=== PATIENT | male | born 1965 | race Caucasian/White ===

== ENCOUNTER 2017-05-21 09:48 | Inpatient (IN) | payer MEDICARE ==
[2017-05-21] VITALS (12 sets, daily range): BP systolic 161–192; BP diastolic 92–117; PULSE 54–86; RESP 14–26; TEMP 97.6–98.2; O2SAT 96–99
[~2017-05-21] VITALS: Ht 185.4 cm; Wt 113.0 kg
[~2017-05-21 09:48] MED LIST: ATEN1TAB55 PO; ATOR10 PO; DICL75TA PO; ECASA PO; LISI10 PO
[2017-05-21] MEDS ORDERED: SOMA350T PO (10:13)
[2017-05-21] MEDS ORDERED: NAPR500T PO (10:13)
--- NOTE | 2017-05-21 10:29 | RADRPT ---
EXAM DATE/TIME: 05/21/2017 10:21 [place] COMPARISON: CHEST SINGLE AP, February 10, 2015, 10:31. INDICATIONS : Short of breath MEDICAL HISTORY : Hypertension. SURGICAL HISTORY : None. ENCOUNTER: Initial ACUITY: 1 day PAIN SCORE: 0/10 LOCATION: chest FINDINGS: Portable AP view of the chest demonstrates a normal-sized cardiac silhouette. No effusion, consolidat ion, or pneumothorax is visualized. The bones and soft tissues demonstrate no acute abnormality. CONCLUSION: No acute cardiopulmonary abnormality is identified. Rg Lundy MD on May 21, 2017 at 10:28 Board Certified Radiologist. This report was verified electronically.
[2017-05-21 10:41] LABS: AUTOMATED NEUTROPHIL # 6.7 TH/MM3 (1.8-7.7); BASOPHIL # 0.1 TH/MM3 (0-0.2); BASOPHIL % 1.6 % (0.0-2.0); EOSINOPHIL # 0.1 TH/MM3 (0-0.4); EOSINOPHIL % 1.3 % (0.0-4.0); HEMATOCRIT 45.4 % (39.0-51.0); LYMPH % 14.8 % (9.0-44.0); LYMPHOCYTE # 1.3 TH/MM3 (1.0-4.8); MEAN CELL VOLUME 87.4 FL (80.0-100.0); MEAN CORPUSCULAR HGB CONC 34.4 % (32.0-36.0); MONO % 8.2 % (0.0-8.0); NEUT % 74.1 % (16.0-70.0); PLATELET COUNT 169 TH/MM3 (150-450); RED BLOOD COUNT 5.19 MIL/MM3 (4.50-5.90); RED CELL DISTRIBUTION WIDTH 14.3 % (11.6-17.2)
[2017-05-21 10:45] LABS: HEMO FLAGS AUTO DIFF
--- NOTE | 2017-05-21 11:11 | PD ---
HPI Chief Complaint: Chest Pain Time Seen by Provider: 10:09 Travel History International Travel<30 days: No Contact w/Intl Traveler<30days: No Traveled to known affect area: No History of Present Illness HPI 52-year-old man who presents to the emergency department complaining of generalized pain. He was a special-needs long-term. He reports he suffers from paraplegia. Clarifies this really affects has chronic pain and some generalized weakness. He states that he's had a wheelchair but can stand and transfer. He states that he had more pain after he will consult to the cafeteria and got some chest pain. He reports that he had his blood pressure checked and it was elevated. He states that he had blood pressure both was told he had hypertension past but that was related to his chronic pain. He does not take blood pressure medicines now. History Past Medical History Narrative Medical Paraplegia Hypertension Denies history of heart disease, states he had a heart catheter before but was told that the chest pain was from his muscles and bones. Social History Alcohol Use: Yes (OCC) Tobacco Use: No (CIGARETTES 2-3/DAY, quit in september 2015) Allergies-Medications (Allergen,Severity, Reaction): Coded Allergies: methocarbamol (Verified Allergy, Unknown, N/V, 05/21/17) metoprolol (Verified Adverse Reaction, Severe, MAKES HIM MEAN, 05/21/17) *MDRO Multi-Drug Resistant Organism (Verified Adverse Reaction, Unknown, ) MRSA arm wound 01/20/15. Uncoded Allergies: ANTIBIOTIC (Adverse Reaction, Severe, UNKNOWN, 12/20/14) Reported Meds & Prescriptions Reported Meds & Active Scripts Active Reported Soma (Carisoprodol) 350 Mg Tab 350 Mg PO TID PRN Naproxen 500 Mg Tab 500 Mg PO BID Review of Systems Except as stated in HPI: all other systems reviewed are Neg Physical Exam Narrative GENERAL: Well-appearing 52-year-old man, no acute distress. SKIN: Focused skin assessment warm/dry. HEAD: Atraumatic. Normocephalic. EYES: Pupils equal and round. No scleral icterus. No injection or drainage. ENT: No nasal bleeding or discharge. Mucous membranes pink and moist. NECK: Trachea midline. No JVD. CARDIOVASCULAR: Regular rate and rhythm. No murmur appreciated. RESPIRATORY: No accessory muscle use. Clear to auscultation. Breath sounds equal bilaterally. GASTROINTESTINAL: Abdomen soft, non-tender, nondistended. Hepatic and splenic margins not palpable. MUSCULOSKELETAL: No obvious deformities. No clubbing. No cyanosis. No edema. NEUROLOGICAL: Awake and alert. Generalized weakness. Data Data Last Documented VS Vital Signs Date Time Temp Pulse Resp B/P (MAP) Pulse Ox O2 Delivery O2 Flow Rate FiO2 05/21/17 09:58 97.6 86 26 178/106 (130) 97 Orders Orders Chest, Single Ap (05/21/17 ) Troponin I (05/21/17 10:09) Complete Blood Count With Diff (05/21/17 10:09) Comprehensive Metabolic Panel (05/21/17 10:09) Magnesium (Mg) (05/21/17 10:09) Iv Access Insert/Monitor (05/21/17 10:09) Electrocardiogram (05/21/17 ) Aspirin Chew (Aspirin Chew) (05/21/17 11:39) Nitroglycerin Sl (Nitrostat Sl) (05/21/17 11:45) Labs Laboratory Tests Test 05/21/17 10:05 White Blood Count 9.0 TH/MM3 Red Blood Count 5.19 MIL/MM3 Hemoglobin 15.6 GM/DL Hematocrit 45.4 % Mean Corpuscular Volume 87.4 FL Mean Corpuscular Hemoglobin 30.0 PG Mean Corpuscular Hemoglobin Concent 34.4 % Red Cell Distribution Width 14.3 % Platelet Count 169 TH/MM3 Mean Platelet Volume 8.7 FL Neutrophils (%) (Auto) 74.1 % Lymphocytes (%) (Auto) 14.8 % Monocytes (%) (Auto) 8.2 % Eosinophils (%) (Auto) 1.3 % Basophils (%) (Auto) 1.6 % Neutrophils # (Auto) 6.7 TH/MM3 Lymphocytes # (Auto) 1.3 TH/MM3 Monocytes # (Auto) 0.7 TH/MM3 Eosinophils # (Auto) 0.1 TH/MM3 Basophils # (Auto) 0.1 TH/MM3 CBC Comment AUTO DIFF Differential Comment AUTO DIFF CONFIRMED Blood Urea Nitrogen 18 MG/DL Creatinine 1.02 MG/DL Random Glucose 91 MG/DL Total Protein 6.9 GM/DL Albumin 3.5 GM/DL Calcium Level 8.6 MG/DL Magnesium Level 2.2 MG/DL Alkaline Phosphatase 70 U/L Aspartate Amino Transf (AST/SGOT) 17 U/L Alanine Aminotransferase (ALT/SGPT) 22 U/L Total Bilirubin 0.4 MG/DL Sodium Level 144 MEQ/L Potassium Level 3.4 MEQ/L Chloride Level 109 MEQ/L Carbon Dioxide Level 30.0 MEQ/L Anion Gap 5 MEQ/L Estimat Glomerular Filtration Rate 76 ML/MIN Troponin I 0.22 NG/ML MDM Medical Decision Making Medical Screen Exam Complete: Yes Emergency Medical Condition: Yes Interpretation(s) My review of EKG: Normal sinus rhythm at a rate of 87, diffuse T wave inversions inferior and lateral leads. Compared to previous EKG from February 2015 , no significant change. LABS: CBC is unremarkable. CMP is generally unremarkable. Troponin 0.22 Chest x-ray: No acute disease. Differential Diagnosis Chest pain, ACS, muscular skeletal pain, chronic pain, other Narrative Course Medical decision making Is a 52-year-old man who presents to the emergency department after some increased pain. He did describe some chest pain. Now he complains of pain in his arms and legs and all over that he states is from his neck problems. He's had apparently a negative heart catheter before, although this is not at all clear. He looks well now. We'll check EKG labs x-ray. FINAL: Chest pain, not a great story but troponins bumped a 0.22. EKG is abnormal. Set elevated troponins in the past 0.12. He reports a heart catheter in the past but I don't see one on our system. We'll plan on admission for serial cardiac enzymes and possibly cardiology consult. Diagnosis Primary Impression: Chest pain Additional Instructions: Continue current medications. Follow up with her primary doctor in the next 2-5 days. Med/Other Pt SpecificInfo: No Change to Meds Disposition: 01 DISCHARGE HOME Condition: Stable Milton Siu MD May 21, 2017 11:11
[2017-05-21 11:19] LABS: ALT (GPT) 22 U/L (12-78); ANION GAP 5 MEQ/L (5-15); AST (GOT) 17 U/L (15-37); BLOOD UREA NITROGEN 18 MG/DL (7-18); CHLORIDE 109 MEQ/L (98-107); GLOMERULAR FILTRATION RATE 76 ML/MIN (>89); MAGNESIUM 2.2 MG/DL (1.5-2.5); POTASSIUM 3.4 MEQ/L (3.5-5.1); SODIUM (NA) 144 MEQ/L (136-145)
[2017-05-21 11:24] LABS: ALKALINE PHOSPHATASE 70 U/L (45-117); TOTAL BILIRUBIN ADULT 0.4 MG/DL (0.2-1.0)
[2017-05-21 11:27] LABS: SCAN/DIFF AUTO DIFF CONFIRMED
[2017-05-21] MEDS ORDERED: ASPIRIN 81 MG CHEW TAB CHEW STA (11:39)
[2017-05-21] MEDS ORDERED: NITROGLYCERIN 0.4 MG SL 25 TABS/BTL SL PRN (11:45)
[2017-05-21] MEDS ORDERED: ACETAMINOPHEN 500 MG CPLT PO PRN (12:45)
[2017-05-21] MEDS: ENOXAPARIN SODIUM 120 MG/0.8 ML SYRINGE SQ SCH (14:00)
[2017-05-21] MEDS: MORPHINE SULFATE 4 MG/ML INJ IV PUSH PRN ×2 (14:45→20:05)
[2017-05-21] MEDS: SODIUM CHLORIDE 0.9% FLUSH 10 ML FLUSH IV FLUSH PRN ×2 (14:45→15:16)
[2017-05-21] MEDS ORDERED: ENALAPRILAT 1.25 MG/ML VIAL IV PUSH PRN (15:00)
--- NOTE | 2017-05-21 16:57 | HHI.HP ---
[facility] Service [facility] Primary Care Physician Unknown Admission Diagnosis chest pain Diagnoses: (1) Elevated troponin I level (2) Chest pain (3) Hypertension Chief Complaint: Chest pain Travel History International Travel<30 Days: No Contact w/Intl Traveler <30 Da: No Traveled to Known Affected Are: No History of Present Illness The patient is a 52-year-old male who presented to emergency department due to complaint of chest pain. He was in a special needs her pain senior care and reported a 30 second episode of substernal chest pain that did not radiate. He described the pain as pressure. Denies associated dyspnea or diaphoresis. He is paraplegic. He states that he was not feeling well and they checked his blood pressure at the senior care. It was found to be elevated. He currently has no chest pain. Review of Systems Constitutional: DENIES: Fever, Chills, Night Sweats Eyes: DENIES: Blurred vision, Vision loss Ears, nose, mouth, throat: DENIES: Hearing loss Respiratory: DENIES: Cough, Wheezing, Sputum production, Shortness of breath Cardiovascular: COMPLAINS OF: Chest pain, DENIES: Palpitations, Dyspnea on Exertion, Lower Extremity Edema Gastrointestinal: DENIES: Abdominal pain, Constipation, Diarrhea, Nausea, Vomiting Genitourinary: DENIES: Urinary frequency, Urinary incontinence, Urgency, Hematuria, Dysuria, Nocturia Musculoskeletal: DENIES: Joint pain, Muscle aches Integumentary: DENIES: Pruritus, Rash Hematologic/lymphatic: DENIES: Bruising Neurologic: DENIES: Headache Past Family Social History Past Medical History Paraplegia Hypertension Past Surgical History Left upper leg surgery Back surgery Reported Medications Soma 350 mg 3 times a day as needed Naproxen 500 mg twice a day Allergies: Coded Allergies: methocarbamol (Verified Allergy, Unknown, N/V, 05/21/17) metoprolol (Verified Adverse Reaction, Severe, MAKES HIM MEAN, 05/21/17) *MDRO Multi-Drug Resistant Organism (Verified Adverse Reaction, Unknown, ) MRSA arm wound 01/20/15. Uncoded Allergies: ANTIBIOTIC (Adverse Reaction, Severe, UNKNOWN, 12/20/14) Family History Denies family history of heart disease, diabetes, hypertension, hyperlipidemia. Social History Previously smoked 2-3 cigarettes per day, but states that he quit last year. Reports occasional alcohol use. Denies illicit drug use. Physical Exam Vital Signs Vital Signs Date Time Temp Pulse Resp B/P (MAP) Pulse Ox O2 Delivery O2 Flow Rate FiO2 05/21/17 16:35 98.2 60 18 172/93 (119) 96 05/21/17 15:44 54 161/92 (115) 05/21/17 15:11 190/100 (130) 05/21/17 14:59 192/111 (138) 05/21/17 14:40 191/117 (141) 05/21/17 13:52 97.9 66 14 191/107 (135) 98 05/21/17 12:57 69 18 168/99 (122) 99 Room Air 05/21/17 12:06 98.0 73 18 175/92 (119) 97 Room Air 05/21/17 09:58 97.6 86 26 178/106 (130) 97 Physical Exam GENERAL: Well-nourished, well-developed male in no acute distress. HEENT: Normocephalic, atraumatic. Pupils equal, round and reactive. Extraocular movements intact. No scleral icterus. No injection or drainage. Oropharynx is clear. Mucous membranes are moist. CARDIOVASCULAR: Regular rate and rhythm without murmurs, gallops, or rubs. RESPIRATORY: Clear to auscultation. No wheezes, rales, or rhonchi. Breathing is non-labored. GASTROINTESTINAL: Abdomen soft, non-tender, nondistended. EXTREMITIES: No lower extremity edema. No calf tenderness. PSYCH: Alert and oriented x 3. Laboratory Laboratory Tests Test 05/21/17 10:05 05/21/17 16:07 White Blood Count 9.0 Red Blood Count 5.19 Hemoglobin 15.6 Hematocrit 45.4 Mean Corpuscular Volume 87.4 Mean Corpuscular Hemoglobin 30.0 Mean Corpuscular Hemoglobin Concent 34.4 Red Cell Distribution Width 14.3 Platelet Count 169 Mean Platelet Volume 8.7 Neutrophils (%) (Auto) 74.1 Lymphocytes (%) (Auto) 14.8 Monocytes (%) (Auto) 8.2 Eosinophils (%) (Auto) 1.3 Basophils (%) (Auto) 1.6 Neutrophils # (Auto) 6.7 Lymphocytes # (Auto) 1.3 Monocytes # (Auto) 0.7 Eosinophils # (Auto) 0.1 Basophils # (Auto) 0.1 CBC Comment AUTO DIFF Differential Comment AUTO DIFF CONFIRMED Blood Urea Nitrogen 18 Creatinine 1.02 Random Glucose 91 Total Protein 6.9 Albumin 3.5 Calcium Level 8.6 Magnesium Level 2.2 Alkaline Phosphatase 70 Aspartate Amino Transf (AST/SGOT) 17 Alanine Aminotransferase (ALT/SGPT) 22 Total Bilirubin 0.4 Sodium Level 144 Potassium Level 3.4 Chloride Level 109 Carbon Dioxide Level 30.0 Anion Gap 5 Estimat Glomerular Filtration Rate 76 Troponin I 0.22 Result Diagram: 05/21/17 1005 05/21/17 1005 Imaging Last Impressions Chest X-Ray 05/21/17 0000 Signed Impressions: Service Date/Time: Sunday, May 21, 2017 10:21 - CONCLUSION: No acute cardiopulmonary abnormality is identified. MD Archie Hughes VTE Risk Assessment Caprini VTE Risk Assessment: Mod/High Risk (score >= 2) Caprini Risk Assessment Model Point Value = 1 Point Value = 2 Point Value = 3 Point Value = 5 Age 41-60 Minor surgery BMI > 25 kg/m2 Swollen legs Varicose veins or History of unexplained or recurrent spontaneous Oral contraceptives or hormone replacement Sepsis (< 1 month) Serious lung disease, including pneumonia (< 1 month) Abnormal pulmonary function Acute myocardial infarction Congestive heart failure (< 1 month) History of inflammatory bowel disease Medical patient at bed rest Age 61-74 Arthroscopic surgery Major open surgery (> 45 min) Laparoscopic surgery (> 45 min) Malignancy Confined to bed (> 72 hours) Immobilizing plaster cast Central venous access Age >= 75 History of VTE Family history of VTE Factor V Leiden Prothrombin [id number] Lupus anticoagulant Anticardiolipin antibodies Elevated serum homocysteine Heparin-induced thrombocytopenia Other congenital or acquired thrombophilia Stroke (< 1 month) Elective arthroplasty Hip, pelvis, or leg fracture Acute spinal cord injury (< 1 month) Prophylaxis Regimen Total Risk Factor Score Risk Level Prophylaxis Regimen 0-1 Low Early ambulation 2 Moderate Order ONE of the following: *Sequential Compression Device (SCD) *Heparin 5000 units SQ BID 3-4 Higher Order ONE of the following medications: *Heparin 5000 units SQ TID *Enoxaparin/Lovenox 40 mg SQ daily (WT < 150 kg, CrCl > 30 mL/min) *Enoxaparin/Lovenox 30 mg SQ daily (WT < 150 kg, CrCl > 10-29 mL/min) *Enoxaparin/Lovenox 30 mg SQ BID (WT < 150 kg, CrCl > 30 mL/min) AND/OR *Sequential Compression Device (SCD) 5 or more Highest Order ONE of the following medications: *Heparin 5000 units SQ TID (Preferred with Epidurals) *Enoxaparin/Lovenox 40 mg SQ daily (WT < 150 kg, CrCl > 30 mL/min) *Enoxaparin/Lovenox 30 mg SQ daily (WT < 150 kg, CrCl > 10-29 mL/min) *Enoxaparin/Lovenox 30 mg SQ BID (WT < 150 kg, CrCl > 30 mL/min) AND *Sequential Compression Device (SCD) Assessment and Plan Assessment and Plan 1. Chest pain, elevated troponin: The patient had an episode of chest pain at a special needs senior care which lasted approximately 30 seconds. He is not currently having chest pain. His troponin is slightly elevated. Monitor on telemetry. Nitropaste, Lovenox. Consult cardiology. 2. Hypertension: Blood pressure is elevated. Vasotec as needed. Start lisinopril. 3. Paraplegia: Chronic. 4. DVT prophylaxis: Lovenox. 5. Chronic neck/back pain: Patient takes naproxen and Soma at home. Jeff Hernandes MD May 21, 2017 16:57
[2017-05-21] MEDS: NITROGLYCERIN 2% OINT 1 GM PACKET TOP SCH (18:25)
--- NOTE | 2017-05-21 19:03 | PD.CONS ---
HPI Consult Requested By Primary Care Physician Unknown History of Present Illness 52-year-old male with pmhx significant for HTN, former smoker, paraplegia, chronic back pain, medication noncompliance who presented to emergency department with vague complaints of chest pain, neck pain and back pain. He described the pain as pressure. Denies associated dyspnea or diaphoresis. He is paraplegic. He states that he was not feeling well, and they checked his blood pressure at the [facility] and it was very high. In the ER diastolic BP >100mmHg. EKG sinus rhythm with T wave inversion in the inferior leads. First set of cardiac markers showing mildly elevated troponin, thus cardiology has been consulted for further management and evaluation. He does not have economic consultant. HTN its management by PCP but he has been noncompliant with medications. Review of Systems Consitutional: DENIES: Fatigue, Fever, Chills, Weight gain, Weight loss Eyes: DENIES: Amaurosis Fugax, Change in vision HEENT: DENIES: Lightheadedness, Change in hearing Respiratory: DENIES: See HPI, Cough, Snoring, Shortness of breath, Wheezing, Sputum production Cardiovascular: COMPLAINS OF: See HPI, Chest pain Gastrointestinal: DENIES: Nausea, Vomiting, Change in bowel habits, Reflux, Bloody stools, Melena Genitourinary: DENIES: Urinary incontinence, Difficulty voiding Integumentary: DENIES: Rash Neurologic: DENIES: Tingling or numbness, Memory problems, Poor Balance, Stroke symptoms Musculoskeletal: COMPLAINS OF: Muscle pain, Back pain, DENIES: Joint pain, Limited range of motion Psychiatric: DENIES: Anxiety, Depression, Sleep disturbances Hematologic: DENIES: Bruising tendencies, Bleeding tendencies Endocrine: DENIES: Weight gain, Weight loss, Thyroid disease Past Family Social History Allergies: Coded Allergies: methocarbamol (Verified Allergy, Unknown, N/V, 05/21/17) metoprolol (Verified Adverse Reaction, Severe, MAKES HIM MEAN, 05/21/17) *MDRO Multi-Drug Resistant Organism (Verified Adverse Reaction, Unknown, ) MRSA arm wound 01/20/15. Uncoded Allergies: ANTIBIOTIC (Adverse Reaction, Severe, UNKNOWN, 12/20/14) Past Medical History Paraplegia Hypertension Chronic back pain Past Surgical History Left upper leg surgery Reported Medications Reported Meds & Active Scripts Active Reported Soma (Carisoprodol) 350 Mg Tab 350 Mg PO TID PRN Naproxen 500 Mg Tab 500 Mg PO BID Active Ordered Medications Current Medications Medications (Trade) Dose Ordered Sig/Maximiliano Route Start Time Stop Time Status Last Admin (Nitrostat Sl) 0.4 mg Q5M PRN SL 05/21/17 11:45 (NS Flush) 2 ml BID IV FLUSH 05/21/17 21:00 (NS Flush) 2 ml UNSCH PRN IV FLUSH 05/21/17 12:45 05/21/17 15:16 (Aspirin) 325 mg DAILY PO 05/22/17 09:00 (Nitroglycerin 2% Oint) 1 inch Q6HR TOP 05/21/17 18:00 05/21/17 18:25 (Tylenol) 500 mg Q4H PRN PO 05/21/17 12:45 (Morphine Inj) 2 mg Q5M PRN IV PUSH 05/21/17 12:45 05/21/17 14:45 (Protonix) 40 mg DAILY PO 05/22/17 09:00 (Lovenox Inj) 110 mg Q12H SQ 05/21/17 14:00 (Vasotec Inj) 1.25 mg Q6H PRN IV PUSH 05/21/17 15:00 05/21/17 15:16 Family History No CV hx Social History Smoker Physical Exam Vital Signs Vital Signs Date Time Temp Pulse Resp B/P (MAP) Pulse Ox O2 Delivery O2 Flow Rate FiO2 05/21/17 18:17 66 05/21/17 16:35 98.2 60 18 172/93 (119) 96 05/21/17 15:44 54 161/92 (115) 05/21/17 15:11 190/100 (130) 05/21/17 14:59 192/111 (138) 05/21/17 14:40 191/117 (141) 05/21/17 13:52 97.9 66 14 191/107 (135) 98 05/21/17 12:57 69 18 168/99 (122) 99 Room Air 05/21/17 12:06 98.0 73 18 175/92 (119) 97 Room Air 05/21/17 09:58 97.6 86 26 178/106 (130) 97 Physical Exam GENERAL: Well-nourished, well-developed patient. SKIN: Warm and dry. HEAD: Normocephalic. EYES: No scleral icterus. No injection or drainage. NECK: Supple, trachea midline. No JVD or lymphadenopathy. CARDIOVASCULAR: Regular rate and rhythm without murmurs, gallops, or rubs. RESPIRATORY: Breath sounds equal bilaterally. No accessory muscle use. GASTROINTESTINAL: Abdomen soft, non-tender, nondistended. EXTREMITIES: No cyanosis, or edema. Laboratory Laboratory Tests Test 05/21/17 10:05 05/21/17 16:07 White Blood Count 9.0 Red Blood Count 5.19 Hemoglobin 15.6 Hematocrit 45.4 Mean Corpuscular Volume 87.4 Mean Corpuscular Hemoglobin 30.0 Mean Corpuscular Hemoglobin Concent 34.4 Red Cell Distribution Width 14.3 Platelet Count 169 Mean Platelet Volume 8.7 Neutrophils (%) (Auto) 74.1 Lymphocytes (%) (Auto) 14.8 Monocytes (%) (Auto) 8.2 Eosinophils (%) (Auto) 1.3 Basophils (%) (Auto) 1.6 Neutrophils # (Auto) 6.7 Lymphocytes # (Auto) 1.3 Monocytes # (Auto) 0.7 Eosinophils # (Auto) 0.1 Basophils # (Auto) 0.1 CBC Comment AUTO DIFF Differential Comment AUTO DIFF CONFIRMED Blood Urea Nitrogen 18 Creatinine 1.02 Random Glucose 91 Total Protein 6.9 Albumin 3.5 Calcium Level 8.6 Magnesium Level 2.2 Alkaline Phosphatase 70 Aspartate Amino Transf (AST/SGOT) 17 Alanine Aminotransferase (ALT/SGPT) 22 Total Bilirubin 0.4 Sodium Level 144 Potassium Level 3.4 Chloride Level 109 Carbon Dioxide Level 30.0 Anion Gap 5 Estimat Glomerular Filtration Rate 76 Troponin I 0.22 0.23 Total Creatine Kinase 136 Result Diagram: 05/21/17 1005 05/21/17 1005 Imaging Last Impressions Chest X-Ray 05/21/17 0000 Signed Impressions: Service Date/Time: Sunday, May 21, 2017 10:21 - CONCLUSION: No acute cardiopulmonary abnormality is identified. Rg Lundy MD Assessment and Plan Problem List: (1) Chest pain ICD Codes: R07.9 - Chest pain Status: Acute Plan: 52 y/o M with cardiac risk factors that include HTN, smoker, age presenting with atypical chest pain/back/neck pain, mildly elevated troponin and EKG changes in the setting of HTN urgency and noncompliance with medications. Currently afebrile, hemodynamically stable and chest pain free. ? Negative cardiac work-up in the past, no records available. Recommendations: 1. ASA 81mg PO daily 2. No BB given reported allergy, start Norvasc 5mg PO daily 3. Get Lipid Profile 4. 2Dechocardiogram 5. Lisinopril 5mg PO daily 6. HCTZ 25mg PO daily 7. Pain management for neck pain Further management to be determine (2) acute on chronic lower back pain Status: Acute (3) Multiple contusions ICD Codes: T14.8 - Other injury of unspecified body region Status: Acute (4) Cervical strain, acute ICD Codes: S16.1XXA - Strain of muscle, fascia and tendon at neck level, initial encounter Status: Acute (5) Hypertension ICD Codes: I10 - Hypertension Status: Chronic Montemayor-Xavier Peterson MD May 21, 2017 19:03
[2017-05-21] MEDS: SODIUM CHLORIDE 0.9% FLUSH 10 ML FLUSH IV FLUSH SCH (20:04)
[2017-05-22] VITALS (10 sets, daily range): BP systolic 127–185; BP diastolic 75–100; PULSE 50–72; RESP 16–20; TEMP 98.2–98.7; O2SAT 95–100
[2017-05-22 00:01] LABS: HDL CHOLESTEROL 57.3 MG/DL (40.0-60.0)
[2017-05-22] MEDS: ENOXAPARIN SODIUM 120 MG/0.8 ML SYRINGE SQ SCH ×2 (02:00→14:00)
[2017-05-22] MEDS: MORPHINE SULFATE 4 MG/ML INJ IV PUSH PRN ×4 (02:40→20:40)
[2017-05-22 04:58] LABS: BICARBONATE 27.1 MEQ/L (21.0-32.0); POTASSIUM 3.3 MEQ/L (3.5-5.1)
[2017-05-22] MEDS: NITROGLYCERIN 2% OINT 1 GM PACKET TOP SCH ×4 (06:25→18:46)
[2017-05-22] MEDS: SODIUM CHLORIDE 0.9% FLUSH 10 ML FLUSH IV FLUSH SCH ×2 (08:34→21:00)
[2017-05-22] MEDS: LISINOPRIL 5 MG TAB PO SCH ×2 (08:38→20:39)
[2017-05-22] MEDS: PANTOPRAZOLE SOD 40 MG DELAYED RELEASE TAB PO SCH (08:39)
[2017-05-22] MEDS: amLODIPine BESYLATE 5 MG TAB PO SCH ×2 (08:39→20:39)
[2017-05-22] MEDS: HYDROCHLOROTHIAZIDE 25 MG TAB PO SCH (08:41)
[2017-05-22] MEDS: ASPIRIN 81 MG CHEW TAB PO SCH (08:42)
[2017-05-22] MEDS ORDERED: ASPIRIN 325 MG TAB PO SCH (09:00)
--- NOTE | 2017-05-22 10:44 | HHI.PR ---
Subjective Remarks Follow-up chest pain, elevated troponin. Patient had another very short episode of chest pain overnight, lasting only a few seconds. Denies shortness of breath. Primary complaint is neck pain, which is chronic. Objective Vitals Vital Signs Date Time Temp Pulse Resp B/P (MAP) Pulse Ox O2 Delivery O2 Flow Rate FiO2 05/22/17 07:32 98.4 52 16 127/82 (97) 98 05/22/17 04:12 98.2 50 20 132/75 (94) 99 05/22/17 04:00 66 05/22/17 00:28 54 05/22/17 00:28 98.4 55 18 140/85 (103) 95 05/21/17 20:07 84 05/21/17 19:52 97.9 76 18 190/96 (127) 97 05/21/17 18:17 66 05/21/17 16:35 98.2 60 18 172/93 (119) 96 05/21/17 15:44 54 161/92 (115) 05/21/17 15:11 190/100 (130) 05/21/17 14:59 192/111 (138) 05/21/17 14:40 191/117 (141) 05/21/17 13:52 97.9 66 14 191/107 (135) 98 05/21/17 12:57 69 18 168/99 (122) 99 Room Air 05/21/17 12:06 98.0 73 18 175/92 (119) 97 Room Air I/O 05/21/17 05/21/17 05/21/17 05/22/17 05/22/17 05/22/17 07:00 15:00 23:00 07:00 15:00 23:00 Output Total 575 ml Balance -575 ml Output Urine Total 575 ml Result Diagram: 05/21/17 1005 05/22/17 0400 Imaging Last Impressions Chest X-Ray 05/21/17 0000 Signed Impressions: Service Date/Time: Sunday, May 21, 2017 10:21 - CONCLUSION: No acute cardiopulmonary abnormality is identified. Rg Lundy MD Objective Remarks General: No acute distress. Heart: Regular rate and rhythm. No murmur. Lungs: Clear to auscultation bilaterally. No wheezes, rales, or rhonchi. Breathing is nonlabored. Abdomen: Soft, nontender, nondistended. Extremities: No lower extremity edema. Psych: Alert and oriented. Procedures None Urinary Catheter: No Vascular Central Line Catheter: No A/P Problem List: (1) Elevated troponin I level ICD Code: R74.8 - Abnormal levels of other serum enzymes (2) Chest pain ICD Code: R07.9 - Chest pain Status: Acute (3) Hypertension ICD Code: I10 - Hypertension Status: Chronic Assessment and Plan 1. Chest pain, elevated troponin: Troponins remained mildly elevated overnight, but stable. Appreciate cardiology recommendations. 2. Hypertension: Blood pressure is improved. Vasotec as needed. Patient is refusing lisinopril, amlodipine, HCTZ. 3. Paraplegia: Chronic. 4. DVT prophylaxis: Patient is refusing Lovenox. SCDs, MICHELLE mcelroy. 5. Chronic neck/back pain: Patient takes naproxen and Soma at home. Continue pain control. Jeff Hernandes MD May 22, 2017 10:44
--- NOTE | 2017-05-22 11:28 | ECHRPT ---
Indication: cardiomyopathy CONCLUSIONS Mildly dilated left ventricle. Wall thickness is measured at the upper limits of normal. The left ventricular systolic function is mildly reduced with an estimated ejection fraction in the range of 45- 50%. Trace mitral valve regurgitation. The estimated pulmonary arterial pressure is 37 mmHg. Trileaflet aortic valve Mild sclerosis BP: / HR: Rhythm: Sinus MEASUREMENTS (Male / Female) Normal Values Technical Quality:Good 2D ECHO LV Diastolic Diameter PLAX 6.7 cm 4.2 - 5.9 / 3.9 - 5.3 cm LV Systolic Diameter PLAX 5.4 cm IVS Diastolic Thickness 1.2 cm 0.6 - 1.0 / 0.6 - 0.9 cm LVPW Diastolic Thickness 1.0 cm 0.6 - 1.0 / 0.6 - 0.9 cm LV Relative Wall Thickness 0.3 RV Internal Dim ED PLAX 2.5 cm LA Systolic Diameter LX 3.9 cm 3.0 - 4.0 / 2.7 - 3.8 cm M-MODE Aortic Root Diameter MM 3.3 cm AV Cusp Separation MM 2.3 cm DOPPLER AV Peak Velocity 221.0 cm/s AV Peak Gradient 19.5 mmHg LVOT Peak Velocity 112.0 cm/s LVOT Peak Gradient 5.0 mmHg MR Peak Velocity 342.0 cm/s MR Peak Gradient 46.8 mmHg Mitral E Point Velocity 79.5 cm/s Mitral A Point Velocity 75.0 cm/s Mitral E to A Ratio 1.1 TR Peak Velocity 259.0 cm/s TR Peak Gradient 26.8 mmHg FINDINGS LEFT VENTRICLE Mildly dilated left ventricle. Wall thickness is measured at the upper limits of normal. The left ventricular systolic function is mildly reduced with an estimated ejection fraction in the range of 45- 50%. RIGHT VENTRICLE Normal right ventricular size and systolic function. LEFT ATRIUM The left atrial size is normal. RIGHT ATRIUM The right atrial size is normal. ATRIAL SEPTUM Normal atrial septal thickness without atrial level shunting by limited color doppler interrogation. AORTA The aortic root and proximal ascending aorta are normal in size on limited imaging. MITRAL VALVE Trace mitral valve regurgitation. AORTIC VALVE Trileaflet aortic valve Mild sclerosis TRICUSPID VALVE The estimated pulmonary arterial pressure is 37 mmHg. PULMONARY VALVE The pulmonary valve is not well visualized. VESSELS The inferior vena cava is normal in size. PERICARDIUM No pericardial effusion. Facundo Hanks MD, FACC, FRCP (Electronically Signed) Final Date:22 May 2017 11:27
--- NOTE | 2017-05-22 11:30 | EKG ---
Date Performed: 05/21/2017 Time Performed: 16:45:12 PTAGE: 52 years EKG: SINUS BRADYCARDIA MODERATE T-WAVE ABNORMALITY, CONSIDER INFERIOR ISCHEMIA ABNORMAL ECG Comp ared to prior tracing no significant change PREVIOUS TRACING : 05/21/2017 09.59 DOCTOR: Facundo Hanks Interpretating Date/Time 05/22/2017 11:28:22
--- NOTE | 2017-05-22 11:30 | EKG ---
Date Performed: 05/21/2017 Time Performed: 21:56:37 PTAGE: 52 years EKG: Sinus rhythm MODERATE T-WAVE ABNORMALITY, CONSIDER LATERAL ISCHEMIA MODERATE T-WAVE ABNORMALITY, CONSIDER INFERIO R ISCHEMIA ABNORMAL ECG Compared to prior tracing no significant change PREVIOUS TRACING : 05/21/2017 16.45 DOCTOR: Facundo Hanks Interpretating Date/Time 05/22/2017 11:28:30
--- NOTE | 2017-05-22 11:30 | EKG ---
Date Performed: 05/21/2017 Time Performed: 09:59:11 PTAGE: 52 years EKG: Sinus rhythm MODERATE T-WAVE ABNORMALITY, CONSIDER LATERAL ISCHEMIA MODERATE T-WAVE ABNORMALITY, CONSIDER INFERIO R ISCHEMIA ABNORMAL ECG Compared to prior tracing no significant change PREVIOUS TRACING : 02/10/2015 21.45 DOCTOR: Facundo Hanks Interpretating Date/Time 05/22/2017 11:28:08
[2017-05-23] VITALS (11 sets, daily range): BP systolic 149–187; BP diastolic 91–114; PULSE 60–108; RESP 18–22; TEMP 97.3–98.7; O2SAT 95–98
[2017-05-23] MEDS: NITROGLYCERIN 2% OINT 1 GM PACKET TOP SCH ×4 (00:13→17:33)
[2017-05-23] MEDS: ENOXAPARIN SODIUM 120 MG/0.8 ML SYRINGE SQ SCH ×2 (01:00→13:00)
[2017-05-23] MEDS: HYDROCHLOROTHIAZIDE 25 MG TAB PO SCH (08:55)
[2017-05-23] MEDS: MORPHINE SULFATE 4 MG/ML INJ IV PUSH PRN ×2 (08:57→19:23)
[2017-05-23] MEDS: SODIUM CHLORIDE 0.9% FLUSH 10 ML FLUSH IV FLUSH SCH ×2 (08:57→20:54)
[2017-05-23] MEDS: PANTOPRAZOLE SOD 40 MG DELAYED RELEASE TAB PO SCH (08:58)
[2017-05-23] MEDS: ASPIRIN 81 MG CHEW TAB PO SCH (08:58)
--- NOTE | 2017-05-23 08:59 | HHI.PR ---
Subjective Remarks Follow up chest pain, neck/back pain. Patient denies chest pain overnight. Denies dyspnea. Requesting muscle relaxer and anti-inflammatory for neck pain. Objective Vitals Vital Signs Date Time Temp Pulse Resp B/P (MAP) Pulse Ox O2 Delivery O2 Flow Rate FiO2 05/23/17 07:32 97.4 70 18 149/96 (113) 98 05/23/17 04:02 66 05/23/17 04:01 108 05/23/17 03:32 98.5 62 19 167/101 (123) 98 05/23/17 00:01 60 05/22/17 23:25 98.4 58 18 185/100 (128) 99 05/22/17 20:49 17 05/22/17 20:06 98.5 65 18 170/98 (122) 97 05/22/17 20:00 72 05/22/17 15:07 98.7 56 17 166/88 (114) 100 05/22/17 11:31 98.3 61 16 99 180/100 (126) I/O 05/22/17 05/22/17 05/22/17 05/23/17 05/23/17 05/23/17 07:00 15:00 23:00 07:00 15:00 23:00 Output Total 625 ml Balance -625 ml Output Urine Total 625 ml Result Diagram: 05/21/17 1005 05/22/17 0400 Imaging Last Impressions Chest X-Ray 05/21/17 0000 Signed Impressions: Service Date/Time: Sunday, May 21, 2017 10:21 - CONCLUSION: No acute cardiopulmonary abnormality is identified. Rg Lundy MD Objective Remarks General: No acute distress. Appears uncomfortable. Heart: Regular rate and rhythm. No murmur. Lungs: Clear to auscultation bilaterally. No wheezes, rales, or rhonchi. Breathing is nonlabored. Abdomen: Soft, nontender, nondistended. Extremities: No lower extremity edema. Psych: Alert and oriented. Procedures None Urinary Catheter: No Vascular Central Line Catheter: No A/P Problem List: (1) Elevated troponin I level ICD Code: R74.8 - Abnormal levels of other serum enzymes (2) Chest pain ICD Code: R07.9 - Chest pain Status: Acute (3) Hypertension ICD Code: I10 - Hypertension Status: Chronic Assessment and Plan 1. Chest pain, elevated troponin: Troponins remained mildly elevated. Appreciate cardiology recommendations. Chest pain has resolved. 2. Hypertension: Blood pressure remains elevated. Vasotec as needed. Patient is refusing lisinopril, HCTZ. He did take amlodipine once last night. 3. Paraplegia: Chronic. 4. DVT prophylaxis: Patient is refusing Lovenox. SCDs, MICHELLE mcelroy. 5. Chronic neck/back pain: Continue pain control. Start Flexeril. Caution with NSAIDs. 6. Hypokalemia: Supplement potassium. Jeff Hernandes MD May 23, 2017 08:59
[2017-05-23] MEDS ORDERED: POTASSIUM CHLORIDE 10 MEQ CONTROLLED RELEASE TAB PO ONE (09:00)
[2017-05-23] MEDS: NAPROXEN SODIUM 550 MG TAB PO SCH ×2 (12:59→20:54)
[2017-05-23] MEDS: CYCLOBENZAPRINE HCL 10 MG TAB PO PRN (17:32)
[2017-05-23] MEDS ORDERED: MORPHINE SULFATE 4 MG/ML INJ IV PUSH PRN (23:00)
[2017-05-24] VITALS: BP 178/86; PULSE 74; RESP 20; TEMP 97.3; O2SAT 98
[2017-05-24] MEDS: NITROGLYCERIN 2% OINT 1 GM PACKET TOP SCH ×4 (01:23→18:06)
[2017-05-24] MEDS: ENOXAPARIN SODIUM 120 MG/0.8 ML SYRINGE SQ SCH ×2 (02:00→13:57)
[2017-05-24] MEDS: CYCLOBENZAPRINE HCL 10 MG TAB PO PRN ×3 (02:34→18:06)
[2017-05-24 04:00] VITALS: BP 154/93; PULSE 65; RESP 18; TEMP 97.4; O2SAT 99
[2017-05-24 08:00] VITALS: BP 146/93; PULSE 75; RESP 18; TEMP 97.5; O2SAT 97
[2017-05-24] MEDS: NAPROXEN SODIUM 550 MG TAB PO SCH ×2 (09:00→20:10)
[2017-05-24] MEDS: amLODIPine BESYLATE 5 MG TAB PO SCH (09:00)
[2017-05-24] MEDS: HYDROCHLOROTHIAZIDE 25 MG TAB PO SCH (09:00)
[2017-05-24] MEDS: LISINOPRIL 5 MG TAB PO SCH (09:14)
[2017-05-24] MEDS: ASPIRIN 81 MG CHEW TAB PO SCH (09:14)
[2017-05-24] MEDS: PANTOPRAZOLE SOD 40 MG DELAYED RELEASE TAB PO SCH (09:14)
[2017-05-24] MEDS: SODIUM CHLORIDE 0.9% FLUSH 10 ML FLUSH IV FLUSH SCH ×2 (09:15→20:10)
[2017-05-24] MEDS ORDERED: MORPHINE SULFATE 4 MG/ML INJ IV PUSH PRN (10:00)
[2017-05-24 10:37] LABS: MAGNESIUM 2.3 MG/DL (1.5-2.5); POTASSIUM 3.3 MEQ/L (3.5-5.1)
[2017-05-24] MEDS: ACETAMINOPHEN/HYDROcodone 325 MG/5 MG TAB PO PRN ×2 (11:07→18:05)
[2017-05-24 12:00] VITALS: BP 146/94; PULSE 70; RESP 18; TEMP 98.1; O2SAT 97
[2017-05-24] MEDS ORDERED: POTASSIUM CHLORIDE 10 MEQ CONTROLLED RELEASE TAB PO ONE (12:45)
--- NOTE | 2017-05-24 13:36 | HHI.PR ---
Subjective Remarks Follow up chest pain pain. The patient states that his neck is continuing to hurt. Current pain medication not really helping much. Denies chest pain overnight. No shortness of breath. Objective Vitals Vital Signs Date Time Temp Pulse Resp B/P (MAP) Pulse Ox O2 Delivery O2 Flow Rate FiO2 05/24/17 12:00 98.1 70 18 146/94 (111) 97 05/24/17 08:00 97.5 75 18 146/93 (110) 97 05/24/17 04:00 Room Air 05/24/17 04:00 97.4 65 18 154/93 (113) 99 05/24/17 00:00 97.3 74 20 178/86 (116) 98 05/23/17 23:40 Room Air 05/23/17 23:20 97.3 71 22 174/98 (123) 95 05/23/17 22:35 18 05/23/17 20:57 160/92 (114) 05/23/17 20:54 18 05/23/17 20:38 98.7 77 18 187/91 (123) 96 05/23/17 16:45 98.3 69 20 180/114 (136) 97 I/O 05/23/17 05/23/17 05/23/17 05/24/17 05/24/17 05/24/17 07:00 15:00 23:00 07:00 15:00 23:00 Intake Total 280 ml Output Total 750 ml Balance -470 ml Intake Oral 280 ml Output Urine Total 750 ml # Bowel Movements 0 Result Diagram: 05/21/17 1005 05/24/17 0830 Imaging Last Impressions Chest X-Ray 05/21/17 0000 Signed Impressions: Service Date/Time: Sunday, May 21, 2017 10:21 - CONCLUSION: No acute cardiopulmonary abnormality is identified. Rg Lundy MD Objective Remarks General: No acute distress. In a cervical collar. Heart: Regular rate and rhythm. No murmur. Lungs: Clear to auscultation bilaterally. No wheezes, rales, or rhonchi. Breathing is nonlabored. Abdomen: Soft, nontender, nondistended. Extremities: No lower extremity edema. Psych: Alert and oriented. Procedures None Urinary Catheter: No Vascular Central Line Catheter: No A/P Problem List: (1) Elevated troponin I level ICD Code: R74.8 - Abnormal levels of other serum enzymes (2) Chest pain ICD Code: R07.9 - Chest pain Status: Acute (3) Hypertension ICD Code: I10 - Hypertension Status: Chronic Assessment and Plan 1. Chest pain, elevated troponin: Troponins remained mildly elevated. Appreciate cardiology recommendations. Chest pain has resolved. 2. Hypertension: Blood pressure remains elevated. Vasotec as needed. Continue amlodipine, lisinopril. Patient is refusing HCTZ. 3. Paraplegia: Chronic. 4. DVT prophylaxis: Patient is refusing Lovenox. SCDs, MICHELLE mcelroy. 5. Chronic neck/back pain: Continue pain control. Increase Flexeril. Caution with NSAIDs. 6. Hypokalemia: Supplement potassium. Recheck labs in the morning. Discharge Planning Anticipate discharge home soon. Jeff Hernandes MD May 24, 2017 13:36
[2017-05-24 16:03] VITALS: BP 143/92; PULSE 87; RESP 19; TEMP 98; O2SAT 100
[2017-05-24] MEDS: MORPHINE SULFATE 4 MG/ML INJ IV PRN ×2 (16:16→21:27)
[2017-05-24 20:00] VITALS: BP 180/94; PULSE 77; PULSE 83; RESP 18; TEMP 98.4; O2SAT 96
[2017-05-25] VITALS (7 sets, daily range): BP systolic 156–168; BP diastolic 82–106; PULSE 69–95; RESP 16–18; TEMP 97.6–98.4; O2SAT 95–97
[2017-05-25] MEDS: NITROGLYCERIN 2% OINT 1 GM PACKET TOP SCH ×4 (00:14→17:02)
[2017-05-25] MEDS: ACETAMINOPHEN/HYDROcodone 325 MG/5 MG TAB PO PRN ×4 (00:17→20:48)
[2017-05-25] MEDS: ENOXAPARIN SODIUM 120 MG/0.8 ML SYRINGE SQ SCH ×2 (00:18→13:31)
[2017-05-25] MEDS: CYCLOBENZAPRINE HCL 10 MG TAB PO PRN ×3 (02:31→18:15)
[2017-05-25] MEDS: MORPHINE SULFATE 4 MG/ML INJ IV PRN ×3 (04:43→17:02)
[2017-05-25] MEDS: SODIUM CHLORIDE 0.9% FLUSH 10 ML FLUSH IV FLUSH SCH ×2 (09:00→20:49)
[2017-05-25] MEDS: HYDROCHLOROTHIAZIDE 25 MG TAB PO SCH (09:00)
[2017-05-25 09:43] LABS: BICARBONATE 26.5 MEQ/L (21.0-32.0); POTASSIUM 3.5 MEQ/L (3.5-5.1)
[2017-05-25] MEDS: NAPROXEN SODIUM 550 MG TAB PO SCH ×2 (10:01→20:48)
[2017-05-25] MEDS: amLODIPine BESYLATE 5 MG TAB PO SCH (10:01)
[2017-05-25] MEDS: LISINOPRIL 5 MG TAB PO SCH (10:02)
[2017-05-25] MEDS: ASPIRIN 81 MG CHEW TAB PO SCH (10:02)
[2017-05-25] MEDS: PANTOPRAZOLE SOD 40 MG DELAYED RELEASE TAB PO SCH (10:02)
--- NOTE | 2017-05-25 16:55 | HHI.PR ---
Subjective Remarks Follow up chest pain, neck pain. Patient states that his pain control is improving. Still with neck pain. No chest pain or dyspnea. Objective Vitals Vital Signs Date Time Temp Pulse Resp B/P (MAP) Pulse Ox O2 Delivery O2 Flow Rate FiO2 05/25/17 16:00 97.9 80 18 168/98 (121) 96 05/25/17 12:00 98.2 86 18 156/95 (115) 97 05/25/17 08:05 94 05/25/17 08:00 98.2 69 18 159/106 (123) 96 05/25/17 07:15 Room Air 05/25/17 04:00 98.0 83 18 158/92 (114) 97 05/25/17 00:00 97.6 95 16 164/82 (109) 95 05/25/17 00:00 Room Air 05/24/17 21:20 Room Air 05/24/17 20:00 98.4 83 18 180/94 (122) 96 05/24/17 20:00 77 I/O 05/24/17 05/24/17 05/24/17 05/25/17 05/25/17 05/25/17 06:59 14:59 22:59 06:59 14:59 22:59 Intake Total 280 ml 480 ml 480 ml Output Total 750 ml Balance -470 ml 480 ml 480 ml Intake Oral 280 ml 480 ml 480 ml Output Urine Total 750 ml # Voids 3 2 # Bowel Movements 0 1 0 Result Diagram: 05/21/17 1005 05/25/17 0825 Imaging Last Impressions Chest X-Ray 05/21/17 0000 Signed Impressions: Service Date/Time: Sunday, May 21, 2017 10:21 - CONCLUSION: No acute cardiopulmonary abnormality is identified. Rg Lundy MD Objective Remarks General: No acute distress. In a cervical collar. Heart: Regular rate and rhythm. No murmur. Lungs: Clear to auscultation bilaterally. No wheezes, rales, or rhonchi. Breathing is nonlabored. Abdomen: Soft, nontender, nondistended. Extremities: No lower extremity edema. Psych: Alert and oriented. Procedures None Urinary Catheter: No Vascular Central Line Catheter: No A/P Problem List: (1) Elevated troponin I level ICD Code: R74.8 - Abnormal levels of other serum enzymes (2) Chest pain ICD Code: R07.9 - Chest pain Status: Acute (3) Hypertension ICD Code: I10 - Hypertension Status: Chronic Assessment and Plan 1. Chest pain, elevated troponin: Troponins remained mildly elevated. Appreciate cardiology recommendations. Chest pain has resolved. 2. Hypertension: Blood pressure remains elevated. Vasotec as needed. Continue amlodipine, lisinopril. Patient is refusing HCTZ. 3. Paraplegia: Chronic. 4. DVT prophylaxis: Patient is refusing Lovenox. SCDs, MICHELLE mcelroy. 5. Chronic neck/back pain: Continue pain control. Continue Flexeril. Caution with NSAIDs. 6. Hypokalemia: Improved. Discharge Planning Anticipate discharge home next 1-2 days pending further clinical improvement. Jeff Hernandes MD May 25, 2017 16:55
[2017-05-26] VITALS (7 sets, daily range): BP systolic 150–174; BP diastolic 91–110; PULSE 65–87; RESP 16–20; TEMP 97.6–98.3; O2SAT 96–99
[2017-05-26] MEDS: ENOXAPARIN SODIUM 120 MG/0.8 ML SYRINGE SQ SCH ×2 (02:00→14:00)
[2017-05-26] MEDS: ACETAMINOPHEN/HYDROcodone 325 MG/5 MG TAB PO PRN ×4 (04:19→23:23)
[2017-05-26] MEDS: NITROGLYCERIN 2% OINT 1 GM PACKET TOP SCH ×4 (05:27→23:23)
[2017-05-26] MEDS: HYDROCHLOROTHIAZIDE 25 MG TAB PO SCH (08:43)
[2017-05-26] MEDS: ASPIRIN 81 MG CHEW TAB PO SCH (08:44)
[2017-05-26] MEDS: PANTOPRAZOLE SOD 40 MG DELAYED RELEASE TAB PO SCH (08:45)
[2017-05-26] MEDS: LISINOPRIL 5 MG TAB PO SCH (08:45)
[2017-05-26] MEDS: MORPHINE SULFATE 4 MG/ML INJ IV PRN ×3 (08:45→19:17)
[2017-05-26] MEDS: amLODIPine BESYLATE 5 MG TAB PO SCH (08:45)
[2017-05-26] MEDS: NAPROXEN SODIUM 550 MG TAB PO SCH ×2 (08:45→23:23)
[2017-05-26] MEDS: SODIUM CHLORIDE 0.9% FLUSH 10 ML FLUSH IV FLUSH SCH ×2 (08:45→23:23)
--- NOTE | 2017-05-26 15:47 | PD.CARD.PN ---
Subjective Subjective Remarks no CV complaints Objective Vital Signs / I&O Vital Signs Date Time Temp Pulse Resp B/P (MAP) Pulse Ox O2 Delivery O2 Flow Rate FiO2 05/26/17 12:00 98.1 69 20 162/104 (123) 98 05/26/17 08:30 Room Air 05/26/17 08:30 65 05/26/17 08:00 98.2 72 20 173/110 (131) 96 05/26/17 04:00 97.6 77 20 150/91 (110) 98 05/26/17 00:00 97.7 87 16 153/99 (117) 98 05/25/17 20:54 Room Air 05/25/17 20:00 98.4 75 16 166/103 (124) 97 05/25/17 16:00 97.9 80 18 168/98 (121) 96 I/O 05/25/17 05/25/17 05/25/17 05/26/17 05/26/17 05/26/17 07:00 15:00 23:00 07:00 15:00 23:00 Intake Total 480 ml 720 ml 600 ml Balance 480 ml 720 ml 600 ml Intake Oral 480 ml 720 ml 600 ml # Voids 2 3 1 # Bowel Movements 0 1 1 Physical Exam GENERAL: Well-nourished, well-developed patient. SKIN: Warm and dry. HEAD: Normocephalic. EYES: No scleral icterus. No injection or drainage. NECK: Supple, trachea midline. No JVD or lymphadenopathy. CARDIOVASCULAR: Regular rate and rhythm without murmurs, gallops, or rubs. RESPIRATORY: Breath sounds equal bilaterally. No accessory muscle use. GASTROINTESTINAL: Abdomen soft, non-tender, nondistended. EXTREMITIES: No cyanosis, or edema. Assessment and Plan Problem List: (1) Chest pain ICD Codes: R07.9 - Chest pain Status: Acute Plan: Chest pain free. BP not controlled Recommendations: 1. ASA 81mg PO daily 2. No BB given reported allergy, Increase Norvasc to 10mg PO daily 5. Increase Lisinopril to 20mg PO daily 6. HCTZ 25mg PO daily 7. Pain management for neck pain Will be available on a PRN basis for any questions or concerns Sign off (2) acute on chronic lower back pain Status: Acute (3) Multiple contusions ICD Codes: T14.8 - Other injury of unspecified body region Status: Acute (4) Cervical strain, acute ICD Codes: S16.1XXA - Strain of muscle, fascia and tendon at neck level, initial encounter Status: Acute (5) Hypertension ICD Codes: I10 - Hypertension Status: Chronic Albina-Xavier Peterson MD May 26, 2017 15:47
--- NOTE | 2017-05-26 15:57 | HHI.PR ---
Subjective Remarks Follow up chest pain, neck pain, hypertension. Chest pain resolved. Still having neck pain. No numbness/tingling/weakness of extremities, unless he lays on one side for too long. Objective Vitals Vital Signs Date Time Temp Pulse Resp B/P (MAP) Pulse Ox O2 Delivery O2 Flow Rate FiO2 05/26/17 12:00 98.1 69 20 162/104 (123) 98 05/26/17 08:30 Room Air 05/26/17 08:30 65 05/26/17 08:00 98.2 72 20 173/110 (131) 96 05/26/17 04:00 97.6 77 20 150/91 (110) 98 05/26/17 00:00 97.7 87 16 153/99 (117) 98 05/25/17 20:54 Room Air 05/25/17 20:00 98.4 75 16 166/103 (124) 97 05/25/17 16:00 97.9 80 18 168/98 (121) 96 I/O 05/25/17 05/25/17 05/25/17 05/26/17 05/26/17 05/26/17 07:00 15:00 23:00 07:00 15:00 23:00 Intake Total 480 ml 720 ml 600 ml Balance 480 ml 720 ml 600 ml Intake Oral 480 ml 720 ml 600 ml # Voids 2 3 1 # Bowel Movements 0 1 1 Result Diagram: 05/25/17 0825 Imaging Last Impressions Chest X-Ray 05/21/17 0000 Signed Impressions: Service Date/Time: Sunday, May 21, 2017 10:21 - CONCLUSION: No acute cardiopulmonary abnormality is identified. Rg Lundy MD Objective Remarks General: No acute distress. In a cervical collar. Heart: Regular rate and rhythm. No murmur. Lungs: Clear to auscultation bilaterally. No wheezes, rales, or rhonchi. Breathing is nonlabored. Abdomen: Soft, nontender, nondistended. Extremities: No lower extremity edema. Psych: Alert and oriented. Procedures None Urinary Catheter: No Vascular Central Line Catheter: No A/P Problem List: (1) Elevated troponin I level ICD Code: R74.8 - Abnormal levels of other serum enzymes (2) Chest pain ICD Code: R07.9 - Chest pain Status: Acute (3) Hypertension ICD Code: I10 - Hypertension Status: Chronic Assessment and Plan 1. Chest pain, elevated troponin: Troponins remained mildly elevated. Appreciate cardiology recommendations. Chest pain has resolved. Cardiology signed off. 2. Hypertension: Blood pressure remains elevated. Vasotec as needed. Patient is refusing HCTZ. Increase amlodipine, lisinopril. 3. Paraplegia: Chronic. 4. DVT prophylaxis: Patient is refusing Lovenox. SCDs, MICHELLE mcelroy. 5. Chronic neck/back pain: Continue pain control. Continue Flexeril. Caution with NSAIDs. 6. Hypokalemia: Improved. Discharge Planning Anticipate discharge home next 1-2 days pending further clinical improvement. Jeff Hernandes MD May 26, 2017 15:57
[2017-05-26] MEDS: CYCLOBENZAPRINE HCL 10 MG TAB PO PRN (16:12)
[2017-05-27] VITALS: BP 164/92; PULSE 70; RESP 20; TEMP 98.2; O2SAT 98
[2017-05-27] MEDS: CYCLOBENZAPRINE HCL 10 MG TAB PO PRN ×3 (00:43→17:42)
[2017-05-27] MEDS: ENOXAPARIN SODIUM 120 MG/0.8 ML SYRINGE SQ SCH ×2 (01:39→13:59)
[2017-05-27] MEDS: MORPHINE SULFATE 4 MG/ML INJ IV PRN ×3 (01:50→17:42)
[2017-05-27 04:00] VITALS: BP 129/86; PULSE 57; RESP 20; TEMP 97.3; O2SAT 98
[2017-05-27] MEDS: NITROGLYCERIN 2% OINT 1 GM PACKET TOP SCH ×3 (05:33→17:42)
[2017-05-27] MEDS: ACETAMINOPHEN/HYDROcodone 325 MG/5 MG TAB PO PRN ×2 (05:33→14:00)
[2017-05-27 08:00] VITALS: BP 169/107; PULSE 61; RESP 18; TEMP 98; O2SAT 99
[2017-05-27] MEDS ORDERED: LISINOPRIL 20 MG TAB PO SCH (09:00)
[2017-05-27] MEDS: HYDROCHLOROTHIAZIDE 25 MG TAB PO SCH (09:47)
[2017-05-27] MEDS: ASPIRIN 81 MG CHEW TAB PO SCH (09:47)
[2017-05-27] MEDS: SODIUM CHLORIDE 0.9% FLUSH 10 ML FLUSH IV FLUSH SCH (09:47)
[2017-05-27] MEDS: NAPROXEN SODIUM 550 MG TAB PO SCH (09:47)
[2017-05-27] MEDS: PANTOPRAZOLE SOD 40 MG DELAYED RELEASE TAB PO SCH (09:47)
[2017-05-27 11:37] VITALS: PULSE 61
[2017-05-27 12:00] VITALS: BP 154/88; PULSE 68; RESP 18; TEMP 97.4; O2SAT 98
[2017-05-27] MEDS ORDERED: CYCL1TAB29 PO (12:53)
[2017-05-27] MEDS ORDERED: AMLO10 PO (12:53)
[2017-05-27] MEDS ORDERED: ASPI81CH25 PO (12:53)
[2017-05-27] MEDS ORDERED: LISI-515 PO (12:53)
[2017-05-27] MEDS ORDERED: HYDR-3516 PO (12:53)
--- NOTE | 2017-05-27 12:53 | HHI.DCPOC ---
Discharge Care Plan Goals to Promote Your Health * To prevent worsening of your condition and complications take all medications as prescribed * To maintain your health at the optimal level follow-up discharge instructions Directions to Meet Your Goals Take your medications as prescribed Follow your dietary instruction Follow activity as directed Keep your appointments as scheduled Take your immunizations and boosters as scheduled If your symptoms worsen call your PCP, if no PCP go to Urgent Care Center or Emergency Room Smoking is Dangerous to Your Health. Avoid second hand smoke Call the 24-hour hour crisis hotline for domestic abuse at Anisha Dow MD R3 May 27, 2017 12:53
--- NOTE | 2017-05-27 13:02 | HHI.DS ---
Discharge Summary Admission Date May 22, 2017 at 13:44 Discharge Date: May 27, 2017 Admitting Diagnosis chest pain (1) Elevated troponin I level ICD Code: R74.8 - Abnormal levels of other serum enzymes (2) Chest pain ICD Code: R07.9 - Chest pain Status: Acute (3) Hypertension ICD Code: I10 - Hypertension Status: Chronic Procedures None Brief History - From Admission The patient is a 52-year-old male who presented to emergency department due to complaint of chest pain. He was in a special needs her pain residential and reported a 30 second episode of substernal chest pain that did not radiate. He described the pain as pressure. Denies associated dyspnea or diaphoresis. He is paraplegic. He states that he was not feeling well and they checked his blood pressure at the residential. It was found to be elevated. He currently has no chest pain. CBC/BMP: 05/25/17 0825 Significant Findings Laboratory Tests Test 05/25/17 08:25 Estimat Glomerular Filtration Rate 84 ML/MIN (>89) Imaging Last Impressions Chest X-Ray 05/21/17 0000 Signed Impressions: Service Date/Time: Sunday, May 21, 2017 10:21 - CONCLUSION: No acute cardiopulmonary abnormality is identified. Rg Lundy MD PE at Discharge General: No acute distress. In a cervical collar. Heart: Regular rate and rhythm. No murmur. Lungs: Clear to auscultation bilaterally. No wheezes, rales, or rhonchi. Breathing is nonlabored. Abdomen: Soft, nontender, nondistended. Extremities: No lower extremity edema. Psych: Alert and oriented. Hospital Course 1. Chest pain, elevated troponin: Troponins remained mildly elevated. Patient evaluated by cardiology who increased patient's blood pressure medications and signed off. ACS rule out negative. 2. Hypertension: Blood pressure remains elevated. Patient is refused HCTZ. Increase amlodipine, lisinopril. 3. Paraplegia: Chronic. 4. Chronic neck/back pain: Patient discharged with 2 days of Yoder and 3 days of Flexeril. Suggested patient follow up with his PCP whom he says will not prescribe controlled substances. Referred patient to his PCP as he may need a pain management referral. 5. Hypokalemia: Improved. Pt Condition on Discharge: Stable Discharge Disposition: Discharge Home Discharge Time: <= 30 minutes Discharge Instructions DIET: Follow Instructions for: As Tolerated, No Restrictions Activities you can perform: Regular-No Restrictions Follow up Referrals: PCP Follow-up - 1 Week New Medications: Amlodipine (Norvasc) 10 Mg Tab 10 MG PO DAILY, #30 TAB Aspirin (Aspirin Low Strength) 81 Mg Chew 81 MG PO DAILY, #30 EA Cyclobenzaprine (Flexeril) 10 Mg Tab 10 MG PO Q8H PRN for NECK PAIN, #15 TAB Hydrocodone-Acetaminophen (Hydrocodone-Acetaminophen) 5-325 mg Tab 1 TAB PO Q6H PRN for PAIN SCALE 4 TO 10, #8 TAB Lisinopril (Lisinopril) 20 Mg Tab 20 MG PO DAILY, #30 TAB Continued Medications: Naproxen (Naproxen) 500 Mg Tab 500 MG PO BID, #60 TAB 0 Refills Discontinued Medications: Carisoprodol (Soma) 350 Mg Tab 350 MG PO TID PRN for PAIN, TAB 0 Refills Anisha Dow MD R3 May 27, 2017 13:02
[2017-05-27 14:55] VITALS: BP 157/103; PULSE 95; RESP 20; TEMP 98.3; O2SAT 97
== END 2017-05-27 19:50 | disposition home or self-care (01) | DRG 313 ==
LOC: NEPC 09:48 → NEDA 12:46 → NEPFCDU 13:49 → OBSVTOIN 05-22 13:44 → N04A 05-23 23:21
PROVIDERS: ADMIT Family Medicine; ATTEND Family Medicine
DX: R07.9 Chest pain, unspecified (principal); G82.20 Paraplegia, unspecified; I10 Essential (primary) hypertension; G89.29 Other chronic pain; M54.2 Cervicalgia; I16.0 Hypertensive urgency; E87.6 Hypokalemia; Z91.14 Patient's other noncompliance with medication regimen; Z87.891 Personal history of nicotine dependence
CPT/HCPCS: 71010; 80048; 80053; 80061; 82550; 83735; 84484; 85025; 93005; 93306; 96374; 96375; 96376; G0378; J1650; J2270

== ENCOUNTER 2017-06-10 07:04 | Emergency (ER) | payer MEDICARE ==
[~2017-06-10] VITALS: Ht 185.4 cm; Wt 90.0 kg
[~2017-06-10 07:04] MED LIST changes: +AMLO10 PO; +ASPI81CH25 PO; -ATEN1TAB55 PO; -ATOR10 PO; +CYCL1TAB29 PO; -DICL75TA PO; -ECASA PO; +HYDR-3516 PO; +LISI-515 PO; -LISI10 PO; +NAPR500T PO
[2017-06-10 07:11] VITALS: BP 145/103; PULSE 106; RESP 16; TEMP 98.5; O2SAT 99
[2017-06-10 07:17] VITALS: BP 145/103; PULSE 101; RESP 18; TEMP 98.5; O2SAT 98
[2017-06-10] MEDS ORDERED: SODIUM CHLORIDE 0.9% FLUSH 10 ML FLUSH IVF PRN (07:45)
[2017-06-10] MEDS ORDERED: ASPIRIN 81 MG CHEW TAB PO ONE (07:45)
[2017-06-10 07:56] LABS: AUTOMATED NEUTROPHIL # 7.3 TH/MM3 (1.8-7.7); BASOPHIL # 0.1 TH/MM3 (0-0.2); BASOPHIL % 0.6 % (0.0-2.0); EOSINOPHIL # 0.1 TH/MM3 (0-0.4); EOSINOPHIL % 1.3 % (0.0-4.0); HEMATOCRIT 49.2 % (39.0-51.0); HEMO FLAGS DIFF FINAL; LYMPH % 23.9 % (9.0-44.0); LYMPHOCYTE # 2.7 TH/MM3 (1.0-4.8); MEAN CORPUSCULAR HEMOGLOBIN 29.3 PG (27.0-34.0); MEAN CORPUSCULAR HGB CONC 34.1 % (32.0-36.0); MONO % 8.6 % (0.0-8.0); NEUT % 65.6 % (16.0-70.0); PLATELET COUNT 304 TH/MM3 (150-450); RED BLOOD COUNT 5.72 MIL/MM3 (4.50-5.90); RED CELL DISTRIBUTION WIDTH 13.5 % (11.6-17.2); WHITE BLOOD COUNT 11.2 TH/MM3 (4.0-11.0)
[2017-06-10 08:01] LABS: APTT (PATIENT) 29.2 SEC (24.3-30.1); PROTHROMBIN TIME - PATIENT 11.4 SEC (9.8-11.6)
--- NOTE | 2017-06-10 08:18 | RADRPT ---
EXAM DATE/TIME: 06/10/2017 07:49 [facility] COMPARISON: CHEST SINGLE AP, May 21, 2017, 10:21. INDICATIONS : Chest Pain MEDICAL HISTORY : Hypertension. SURGICAL HISTORY : None. ENCOUNTER: Initial ACUITY: 1 day PAIN SCORE: 4/10 LOCATION: Bilateral chest FINDINGS: A single view of the chest demonstrates the lungs to be symmetrically aerated without evidence of mas s, infiltrate or effusion. The cardiomediastinal contours are unremarkable. Osseous structures are intact. CONCLUSION: No acute disease. Lauryn Self MD on June 10, 2017 at 8:16 Board Certified Radiologist. This report was verified electronically.
[2017-06-10 08:27] VITALS: O2SAT 98
[2017-06-10 08:28] LABS: MAGNESIUM 2.3 MG/DL (1.5-2.5); POTASSIUM 3.2 MEQ/L (3.5-5.1)
--- NOTE | 2017-06-10 08:38 | PD ---
HPI . Chest pain Chief Complaint: Chest Pain Time Seen by Provider: 07:36 Travel History International Travel<30 days: No Contact w/Intl Traveler<30days: No Traveled to known affect area: No History of Present Illness HPI Patient presents with a chief complaint of chest pain. His symptoms all started at about 8:00 last night. He states that his neighbors were being very mean to him and saying" when things to him. That caused him to start having intermittent chest pain. He states that he took all of his usual medications early including blood pressure medications and pain medications. He states that his intermittent chest pain eventually subsided. However, he presents to the emergency department for further evaluation. He is having no pain at present. He describes the pain as a pushing sensation in his lower center chest. The pain does not radiate. He states that the pain made it difficult for him to breathe. He did not have any associated nausea or diaphoresis. Modifying factors included the disagreement with his neighbors which exacerbated his symptoms and his medications which relieved his symptoms. Current severity is 0 /10. PFSH Past Medical History Hx Anticoagulant Therapy: Yes (ASPIRIN ) Arthritis: Yes Asthma: No Autoimmune Disease: No Heart Rhythm Problems: No Cancer: No Cardiovascular Problems: Yes High Cholesterol: Yes Chest Pain: Yes Congestive Heart Failure: No COPD: No Diabetes: No Diminished Hearing: No Endocrine: No Gastrointestinal Disorders: No Genitourinary: No Hypertension: Yes Immune Disorder: No Implanted Vascular Access Dvce: Yes Musculoskeletal: Yes (HERNAITED DISC C2, PARAPLEGIA: L3-L5 SPINAL CORD COMPRESSION) Neurologic: No Psychiatric: No Reproductive: No Respiratory: Yes (HX OF COLLAPSED L LUNG) Sleep Apnea: No Tetanus Vaccination: < 5 Years Influenza Vaccination: Yes ?: Not Past Surgical History Abdominal Surgery: No AICD: No Arteriovenous Shunt: No Body Medical Devices: metal in the left hip Ear Surgery: No Endocrine Surgery: No Eye Surgery: No Genitourinary Surgery: No Insulin Pump: No Joint Replacement: No Oral Surgery: Yes Pacemaker: No Thoracic Surgery: Yes (LUMBAR DISCECTOMY) Other Surgery: Yes (REMOVAL OF NECK ABSCESS) Social History Alcohol Use: Yes (OCCASIONALLY ) Tobacco Use: No (QUIT 1 YEAR AGO) Substance Use: No Allergies-Medications (Allergen,Severity, Reaction): Coded Allergies: methocarbamol (Verified Allergy, Unknown, N/V, 05/21/17) metoprolol (Verified Adverse Reaction, Severe, MAKES HIM MEAN, 05/21/17) Uncoded Allergies: ANTIBIOTIC (Adverse Reaction, Severe, UNKNOWN, 12/20/14) Reported Meds & Prescriptions Reported Meds & Active Scripts Active Norvasc (Amlodipine Besylate) 10 Mg Tab 10 Mg PO DAILY Aspirin Low Strength (Aspirin) 81 Mg Chew 81 Mg PO DAILY Lisinopril 20 Mg Tab 20 Mg PO DAILY Flexeril (Cyclobenzaprine HCl) 10 Mg Tab 10 Mg PO Q8H PRN Hydrocodone-Acetaminophen 5-325 mg Tab 1 Tab PO Q6H PRN Reported Naproxen 500 Mg Tab 500 Mg PO BID Review of Systems Except as stated in HPI: all other systems reviewed are Neg HENT: Positive: Neck Pain Cardiovascular: Positive: Chest Pain or Discomfort Respiratory: Positive: Shortness of Breath Psychiatric: Positive: Anxiety Physical Exam Narrative GENERAL: Awake and alert and in no acute distress. SKIN: warm/dry. HEAD: Normocephalic. Atraumatic. EYES: Pupils equal and round. No scleral icterus. No injection or drainage. ENT: No nasal bleeding or discharge. Mucous membranes pink and moist. NECK: Trachea midline. His neck is immobilized with a soft collar. The soft collar is very loosely wrapped around his neck. He actually has normal rotational movement of his neck. CARDIOVASCULAR: Regular rate and rhythm. Heart sounds are normal. RESPIRATORY: No accessory muscle use. Clear to auscultation. Breath sounds equal bilaterally. He does have some tenderness to palpation over the distal sternum. GASTROINTESTINAL: Abdomen soft. Nontender. Bowel sounds present. Nondistended. MUSCULOSKELETAL: No obvious deformities. No edema. NEUROLOGICAL: Awake and alert. No obvious cranial nerve deficits. Motor grossly within normal limits. Normal speech. PSYCHIATRIC: Appropriate mood and affect; insight and judgment normal. Data Data Last Documented VS Vital Signs Date Time Temp Pulse Resp B/P (MAP) Pulse Ox O2 Delivery O2 Flow Rate FiO2 06/10/17 07:17 110 18 Room Air 06/10/17 07:17 98.5 145/103 (117) 98 Orders Orders Basic Metabolic Panel (Bmp) (06/10/17 07:36) Ckmb (Isoenzyme) Profile (06/10/17 07:36) Complete Blood Count With Diff (06/10/17 07:36) Magnesium (Mg) (06/10/17 07:36) Prothrombin Time / Inr (Pt) (06/10/17 07:36) Act Partial Throm Time (Ptt) (06/10/17 07:36) Troponin I (06/10/17 07:36) Chest, Single Ap (06/10/17 07:36) Ecg Monitoring (06/10/17 07:36) Iv Access Insert/Monitor (06/10/17 07:36) Oximetry (06/10/17 07:36) Aspirin Chew (Aspirin Chew) (06/10/17 07:45) Sodium Chloride 0.9% Flush (Ns Flush) (06/10/17 07:45) Labs Laboratory Tests Test 06/10/17 07:40 White Blood Count 11.2 TH/MM3 Red Blood Count 5.72 MIL/MM3 Hemoglobin 16.8 GM/DL Hematocrit 49.2 % Mean Corpuscular Volume 86.0 FL Mean Corpuscular Hemoglobin 29.3 PG Mean Corpuscular Hemoglobin Concent 34.1 % Red Cell Distribution Width 13.5 % Platelet Count 304 TH/MM3 Mean Platelet Volume 7.7 FL Neutrophils (%) (Auto) 65.6 % Lymphocytes (%) (Auto) 23.9 % Monocytes (%) (Auto) 8.6 % Eosinophils (%) (Auto) 1.3 % Basophils (%) (Auto) 0.6 % Neutrophils # (Auto) 7.3 TH/MM3 Lymphocytes # (Auto) 2.7 TH/MM3 Monocytes # (Auto) 1.0 TH/MM3 Eosinophils # (Auto) 0.1 TH/MM3 Basophils # (Auto) 0.1 TH/MM3 CBC Comment DIFF FINAL Differential Comment Prothrombin Time 11.4 SEC Prothromb Time International Ratio 1.0 RATIO Activated Partial Thromboplast Time 29.2 SEC [facility] Medical Decision Making Medical Screen Exam Complete: Yes Emergency Medical Condition: Yes Medical Record Reviewed: Yes (this patient was admitted here on 05/22 with similar symptoms. He had serial troponins done which were mildly elevated at 0.2 and then 0.23. Cardiology was consult. They did an echo and found him to have a mildly dilated left ventricle with minimal wall thickening. His ejection fraction was 45-50%.) Interpretation(s) EKG shows a sinus rhythm with inverted T waves in the inferior and lateral leads. This is unchanged from previous. Differential Diagnosis Differential diagnosis of chest pain includes but is not limited to musculoskeletal pain, pulmonary embolism, acute coronary syndrome, pneumonia, pleurisy Narrative Course This patient presents with intermittent chest pain which started last night after his neighbors were saying mean things to him. This chest pain is now resolved. CBC & BMP Diagram 06/10/17 07:40 Calcium Level 9.0, Magnesium Level 2.3 Troponin is 0.17. As noted previously, his troponin has been elevated in the past without coronary ischemia. This patient's symptoms are very unlikely to be related to Ischemia. He will be discharged home. Diagnosis Primary Impression: Chest pain Qualified Codes: R07.9 - Chest pain, unspecified Additional Impression: Elevated troponin I level Patient Instructions: Chest Pain (DC), General Instructions Disposition: 01 DISCHARGE HOME Condition: Stable Natalie Clark MD Jun 10, 2017 08:38
--- NOTE | 2017-06-10 11:39 | EKG ---
Date Performed: 06/10/2017 Time Performed: 07:21:48 PTAGE: 52 years EKG: ATRIAL FLUTTER/TACHYCARDIA T-WAVE ABNORMALITY, CONSIDER LATERAL ISCHEMIA T-WAVE ABNORMALITY , CONSIDER INFERIOR ISCHEMIA ABNORMAL ECG PREVIOUS TRACING : 05/21/2017 21.56 Compared to previous tracing, heart rate has increased. DOCTOR: Andrei Gonzales Interpretating Date/Time 06/10/2017 11:37:08
== END 2017-06-10 12:22 | disposition home or self-care (01) ==
LOC: NEPC 07:04
DX: R07.9 Chest pain, unspecified (principal); M54.2 Cervicalgia; R06.02 Shortness of breath; I48.92 Unspecified atrial flutter; R00.0 Tachycardia, unspecified; R94.31 Abnormal electrocardiogram [ECG] [EKG]; G82.20 Paraplegia, unspecified; I10 Essential (primary) hypertension; F41.9 Anxiety disorder, unspecified
CPT/HCPCS: 71010; 80048; 82550; 83735; 84484; 85025; 85610; 85730; 93005; 99285

== ENCOUNTER → 2017-07-05 | Outpatient (CLI) | payer MEDICARE, MEDICAID ==
--- NOTE | 2017-07-07 09:12 | RSPPFT ---
DATE OF PROCEDURE: 07/05/17 COMMENTS: Spirometry with FVC of 3.6 predicted 5.2, FEV1 of 2.7 predicted 4.2, FEV1/FVC ratio 78% predicted 80%. IMPRESSION: Post-bronchodilator improvement in the FEV1 is noted and may imply a mild obstructive defect with a preserved FEV1/FVC ratio.
== END ==
LOC: HRSP 12:50
PROVIDERS: ATTEND Internal Medicine Pulmonary Disease
DX: R06.02 Shortness of breath (principal); G47.30 Sleep apnea, unspecified
CPT/HCPCS: 36415; 36600; 82805; 84443; 94060

== ENCOUNTER → 2017-07-05 | Outpatient (CLI) | payer MEDICARE, MEDICAID ==
--- NOTE | 2017-07-05 16:02 | RADRPT ---
EXAM DATE/TIME: 07/05/2017 15:09 [facility] COMPARISON: No previous studies available for comparison. INDICATIONS : Short of breath. MEDICAL HISTORY : Hypertension. SURGICAL HISTORY : None. ENCOUNTER: Initial ACUITY: 3 months PAIN SCORE: 0/10 LOCATION: Bilateral chest FINDINGS: PA and lateral views of the chest demonstrate the lungs to be symmetrically aerated without evidence of mass, infiltrate or effusion. No evidence of pneumothorax. The cardiomediastinal contours are un remarkable. Osseous structures are intact. CONCLUSION: No definite infiltrates seen. Martin Glover MD on July 05, 2017 at 16:00 Board Certified Radiologist. This report was verified electronically.
== END ==
LOC: HRAD 14:52
PROVIDERS: ATTEND Internal Medicine Pulmonary Disease
DX: R06.02 Shortness of breath (principal)
CPT/HCPCS: 71020